=== PATIENT | female | born 1995 | race African-American/Black ===

== ENCOUNTER 2017-07-11 09:51 | Emergency (ER) | payer MEDICAID ==
[~2017-07-11 09:51] MED LIST: NAPR550 PO; ROBA750T PO
[2017-07-11 09:52] VITALS: BP 139/83; PULSE 86; RESP 14; TEMP 98.7; O2SAT 95
--- NOTE | 2017-07-11 10:35 | RADRPT ---
EXAM DATE/TIME: 07/11/2017 10:26 [facility] COMPARISON: No previous studies available for comparison. INDICATIONS : Cough and congestion. Patient states productive cough. MEDICAL HISTORY : None. SURGICAL HISTORY : None. ENCOUNTER: Initial ACUITY: 3 weeks PAIN SCORE: 4/10 LOCATION: Bilateral chest FINDINGS: A single view of the chest demonstrates the lungs to be symmetrically aerated without evidence of mas s, infiltrate or effusion. The cardiomediastinal contours are unremarkable. Osseous structures are intact. CONCLUSION: Normal examination for a patient of this age. Javi Orosco MD on July 11, 2017 at 10:34 Board Certified Radiologist. This report was verified electronically.
--- NOTE | 2017-07-11 10:46 | PD ---
HPI Chief Complaint: Cold / Flu Symptoms Time Seen by Provider: 10:28 Travel History International Travel<30 days: No Contact w/Intl Traveler<30days: No Traveled to known affect area: No History of Present Illness HPI This patient complains of cough and runny nose and congestion and sore throat.The patient was seen and examined in the presence of the nurse. Symptoms severity is mild. No fever PFSH Past Medical History Diminished Hearing: No Immunizations Current: No ?: Unknown : 1 Para: 1 Miscarriage: 0 : 0 Social History Alcohol Use: No Tobacco Use: Yes Substance Use: No Allergies-Medications (Allergen,Severity, Reaction): Coded Allergies: No Known Allergies (Verified , 08/25/16) Reported Meds & Prescriptions Reported Meds & Active Scripts Active Robaxin (Methocarbamol) 750 Mg Tab 750 Mg PO Q8HR Anaprox DS (Naproxen Sodium) 550 Mg Tab 550 Mg PO BID PRN Review of Systems General / Constitutional: No: Fever HENT: No: Headaches Cardiovascular: No: Chest Pain or Discomfort Respiratory: Positive: Cough Physical Exam Narrative RESPIRATORY: Respiratory effort unlabored, no retractions or use of accessory muscles. Breath sounds are clear and symmetric. NECK: Symmetrical appearance, midline trachea. No mass or crepitus. Thyroid without enlargement, tenderness, or mass. GASTROINTESTINAL: Abdomen soft, non-tender, nondistended. Positive bowel sounds. No hepato-splenomegaly, or palpable masses. No guarding. Throat clear Data Data Last Documented VS Vital Signs Date Time Temp Pulse Resp B/P (MAP) Pulse Ox O2 Delivery O2 Flow Rate FiO2 07/11/17 10:27 79 20 99 Room Air 07/11/17 09:52 98.7 139/83 (101) Orders Orders Chest, Single Ap (07/11/17 ) [facility] [place] Medical Decision Making Medical Screen Exam Complete: Yes Emergency Medical Condition: Yes Medical Record Reviewed: Yes Differential Diagnosis Bronchitis, pneumonia, flu syndrome Narrative Course I have reviewed the patient's electronic medical record. I reviewed her chest x-ray which is normal Patient likely has viral illness and supportive care discussed. No indication for antibiotics. Diagnosis Primary Impression: Acute viral bronchitis Additional Instructions: The patient was advised to follow up with their physician and return if they worsen. Med/Other Pt SpecificInfo: Other Disposition: 01 DISCHARGE HOME Condition: Stable Master Cohen MD Jul 11, 2017 10:46
[2017-07-11] MEDS ORDERED: ZITHTAB PO (23:19)
[2017-07-11] MEDS ORDERED: NAPR-239 PO (23:19)
== END 2017-07-11 10:50 | disposition home or self-care (01) ==
LOC: NEPD 09:51
DX: J20.8 Acute bronchitis due to other specified organisms (principal); Z72.0 Tobacco use
CPT/HCPCS: 71010; 99283

== ENCOUNTER 2017-07-11 22:15 | Emergency (ER) | payer MEDICAID ==
[2017-07-11] MEDS ORDERED: KETOROLAC TROMETHAMINE 30 MG/ML (IVP) VIAL IV PUSH ONE (22:30)
[2017-07-11] MEDS ORDERED: SODIUM CHLORIDE 0.9% FLUSH 10 ML FLUSH IVF PRN (22:30)
--- NOTE | 2017-07-11 22:30 | PD ---
HPI Chief Complaint: COUGH Time Seen by Provider: 22:24 Travel History International Travel<30 days: No Contact w/Intl Traveler<30days: No Traveled to known affect area: No History of Present Illness HPI PROD COUGH, GREENISH SPUTUM, FEVER 103, BODY ACHES, ONGOING FOR 2 DAYS SEEN THIS MORNING AND TOLD IT WAS A VIRUS AND DISCHARGED. SHE STILL DOES NOT FEEL WELL AND CALLED AN AMBULANCE TO BE RESEEN. ALL:[facility] PMHX NONE PSHX NONE PFSH Past Medical History Diminished Hearing: No Immunizations Current: No : 1 Para: 1 Miscarriage: 0 : 0 Social History Alcohol Use: No Tobacco Use: Yes Substance Use: No Allergies-Medications (Allergen,Severity, Reaction): Coded Allergies: No Known Allergies (Verified , 08/25/16) Reported Meds & Prescriptions Reported Meds & Active Scripts Active No Active Prescriptions or Reported Medications Review of Systems Except as stated in HPI: all other systems reviewed are Neg General / Constitutional: Positive: Fever Respiratory: Positive: Cough Physical Exam Narrative GENERAL: SKIN: Warm and dry. HEAD: Atraumatic. Normocephalic. EYES: Pupils equal and round. No scleral icterus. No injection or drainage. ENT: No nasal bleeding or discharge. Mucous membranes pink and moist. NECK: Trachea midline. No JVD. CARDIOVASCULAR: Regular rate and rhythm. RESPIRATORY: No accessory muscle use. RONCHI GASTROINTESTINAL: Abdomen soft, non-tender, nondistended. Hepatic and splenic margins not palpable. MUSCULOSKELETAL: Extremities without clubbing, cyanosis, or edema. No obvious deformities. NEUROLOGICAL: Awake and alert. No obvious cranial nerve deficits. Motor grossly within normal limits. Five out of 5 muscle strength in the arms and legs. Normal speech. PSYCHIATRIC: Appropriate mood and affect; insight and judgment normal. Data Data Last Documented VS Vital Signs Date Time Temp Pulse Resp B/P (MAP) Pulse Ox O2 Delivery O2 Flow Rate FiO2 07/11/17 22:43 Room Air 07/11/17 22:42 101.6 101 18 133/80 (97) 98 Orders Orders Chest, Pa & Lat (07/11/17 22:24) Sodium Chloride 0.9% Flush (Ns Flush) (07/11/17 22:30) Influenzae A/B Antigen (07/11/17 22:24) Ketorolac Inj (Toradol Inj) (07/11/17 22:30) [facility] Medical Decision Making Medical Screen Exam Complete: Yes Emergency Medical Condition: Yes Medical Record Reviewed: Yes Differential Diagnosis FLU V PNA V BRONCHITIS Narrative Course PATIENT EVALUATED, NO HYPOXEMIA, NO WHEEZING, CONTROLLED HER FEVER, FLU NEG, AND CXR NEG FOR PNA. WILL D/C HOME Diagnosis Primary Impression: Acute bronchitis Qualified Codes: J20.9 - Acute bronchitis, unspecified Patient Instructions: Acute Bronchitis (ED), General Instructions Scripts Naproxen DR (Naproxen EC) 375 Mg Tabdr 375 MG PO BID, #30 TAB 0 Refills Prov: Bernard Cote MD 07/11/17 Azithromycin (Zithromax Z-Costa) 250 Mg Dspk 250 MG PO DIRECTED for Infection, #1 DSPK 0 Refills 500 MG (2 tabs) day 1, then 1 tab days 2-5. Prov: Bernard Cote MD 07/11/17 Disposition: 01 DISCHARGE HOME Condition: Stable Bernard Cote MD Jul 11, 2017 22:30
[2017-07-11 22:42] VITALS: BP 133/80; PULSE 101; RESP 18; TEMP 101.6; O2SAT 98
--- NOTE | 2017-07-11 22:52 | RADRPT ---
EXAM DATE/TIME: 07/11/2017 22:44 [facility] COMPARISON: No previous studies available for comparison. INDICATIONS : Cough. MEDICAL HISTORY : None. SURGICAL HISTORY : None. ENCOUNTER: Initial ACUITY: 1 day PAIN SCORE: 0/10 LOCATION: Bilateral chest FINDINGS: PA and lateral views of the chest demonstrate the lungs to be symmetrically aerated without evidence of mass, infiltrate or effusion. The cardiomediastinal contours are unremarkable. Osseous structure s are intact. CONCLUSION: No acute disease. Maximiliano Riley MD on July 11, 2017 at 22:51 Board Certified Radiologist. This report was verified electronically.
[2017-07-11] MEDS ORDERED: NAPR-239 PO (23:19)
[2017-07-11] MEDS ORDERED: ZITHTAB PO (23:19)
== END 2017-07-11 23:53 | disposition home or self-care (01) ==
LOC: NEPC 22:15
DX: J20.9 Acute bronchitis, unspecified (principal); Z72.0 Tobacco use
CPT/HCPCS: 71020; 87804; 96374; 99284; J1885

== ENCOUNTER 2017-08-02 21:24 | Emergency (ER) | payer MEDICAID ==
[~2017-08-02] VITALS: Ht 160 cm; Wt 77.0 kg
[~2017-08-02 21:24] MED LIST changes: +NAPR375T4 PO; -NAPR550 PO; -ROBA750T PO; +ZITHTAB PO
[2017-08-02 21:28] VITALS: BP 130/100; PULSE 116; RESP 16; TEMP 99.3; O2SAT 98
[2017-08-02] MEDS ORDERED: BENZONATATE 100 MG CAP PO ONE (22:00)
[2017-08-02] MEDS ORDERED: RESP: ALBUTEROL 2.5 MG/IPRATROPIUM 0.5 MG NEB (SCH) INH ONE (22:00)
--- NOTE | 2017-08-02 22:05 | PD ---
HPI Chief Complaint: Cold / Flu Symptoms Time Seen by Provider: 21:51 Travel History International Travel<30 days: No Contact w/Intl Traveler<30days: No Traveled to known affect area: No History of Present Illness HPI Patient has been asked emergency Department complaining of cough and congestion that began today. Patient reports started with just sinus congestion and developed a cough. Patient reports she is coughing to the point that she is vomiting. Patient denies doing anything for this. Patient states this is similar to recent infection of bronchitis. Patient denies doing anything for this prior to coming emergency department. Denies anything making it better or worse. Denies any known fevers, chest pain, shortness of breath, headaches, vomiting, or . Patient reports symptoms resolved after previous treatment however came back today. PFSH Past Medical History Medical History: Denies Significant Hx Diminished Hearing: No Immunizations Current: Yes Tetanus Vaccination: < 5 Years Influenza Vaccination: Yes ?: Unknown LMP: 10\20\17 : 1 Para: 1 Miscarriage: 0 : 0 Past Surgical History Surgical History: No Previous Surgery Social History Alcohol Use: No Tobacco Use: Yes (1/2 PPD) Substance Use: No Allergies-Medications (Allergen,Severity, Reaction): Coded Allergies: No Known Allergies (Verified Adverse Reaction, Unknown, 08/02/17) Reported Meds & Prescriptions Reported Meds & Active Scripts Active Tessalon Perles (Benzonatate) 100 Mg Cap 200 Mg PO Q8HR PRN Ventolin Hfa 18 GM Inh (Albuterol Sulfate) 90 Mcg/Act Aer 2 Puff INH Q4H PRN Prednisone 20 Mg Tab 20 Mg PO BID 4 Days Review of Systems Except as stated in HPI: all other systems reviewed are Neg Physical Exam Narrative GENERAL: Well-developed, overly nourished, in no acute distress, and non-ill appearing. SKIN: Focused skin assessment warm and dry. HEAD: Atraumatic. Normocephalic. EYES: Pupils equal and round. EOMI. No scleral icterus. No injection or drainage. ENT: No nasal bleeding, but with clear discharge. Mucous membranes pink and moist. No tenderness to facial sinuses to palpation. Posterior pharynx is nonerythematous without exudate. Uvula is midline. NECK: Trachea midline. Supple. No nuclear rigidity. No cervical lymphadenopathy. CARDIOVASCULAR: Regular rate and rhythm. No murmur appreciated. RESPIRATORY: No accessory muscle use. No respiratory distress. Clear to auscultation. Breath sounds equal bilaterally. Hacking cough noted on exam. MUSCULOSKELETAL: No obvious deformities. No clubbing. No cyanosis. No edema. Full range of motion. NEUROLOGICAL: Awake and alert. No obvious cranial nerve deficits. Motor grossly within normal limits. Normal speech. PSYCHIATRIC: Appropriate mood and affect; insight and judgment normal. Data Data Last Documented VS Vital Signs Date Time Temp Pulse Resp B/P (MAP) Pulse Ox O2 Delivery O2 Flow Rate FiO2 08/02/17 22:50 08/02/17 21:28 99.3 116 16 98 Orders Orders Benzonatate (Tessalon) (08/02/17 22:00) Albuterol-Ipratropium Neb (Duoneb Neb) (08/02/17 22:00) Resp Mdi/Instruction (08/02/17 21:55) Chest, Single Ap (08/02/17 ) Prednisone (Deltasone) (08/02/17 22:45) Ed Discharge Order (08/02/17 22:37) MDM Medical Decision Making Medical Screen Exam Complete: Yes Emergency Medical Condition: Yes Interpretation(s) Last Impressions Chest X-Ray 08/02/17 0000 Signed Impressions: Service Date/Time: Wednesday, August 02, 2017 22:01 - CONCLUSION: No acute cardiopulmonary abnormality is identified. Jaime Green MD Differential Diagnosis Bronchitis, pneumonia, upper respiratory infection, sinusitis, allergies, other Narrative Course Patients symptom complex of cough and congestion is consistent with viral URI. The patient is non-ill appearing and is in no respiratory distress and comfortable. The patient moves air well and oxygen saturations are normal. There is no clinical or radiological evidence to suggest pneumonia at this time. Plan of care and management were discussed with the patient who agreed with plan. The patient was instructed to follow up with their physician and instructed to return if worsens, progressively worsening shortness of breath or difficulty breathing, persistent fever, chest pains or discomfort, inability to keep medication or fluids down with or without vomiting, or as needed. Patient in no obvious distress upon re-evaluation. All pertinent radiology result(s) discussed with patient. Patient was asked if they wanted to speak to my attending, which the patient did not wish to do at this time. Any questions/ concerns in reference to patient diagnosis/condition discussed and clarified prior to patient's discharge. Reinforced sheer importance of close follow up with patient's primary physician or primary care clinic. Instructed patient to return to ED immediately, if symptoms return/worsen. Patient showed understanding of above instructions. Further instructions and recommendations were detailed in discharge paperwork. Patient ambulated without difficulty out of ED at discharge. Diagnosis Primary Impression: Upper respiratory infection Qualified Codes: J06.9 - Acute upper respiratory infection, unspecified Referrals: [facility] Patient Instructions: General Instructions, Upper Respiratory Infection (ED) Additional Instructions: Follow-up with your primary care physician this week for evaluation. Take all medication as prescribed. Drink plenty of non-caffeinated and nonalcoholic fluids. Return to the emergency department if symptoms get worse. Med/Other Pt SpecificInfo: Prescription(s) given Scripts Benzonatate (Tessalon Perles) 100 Mg Cap 200 MG PO Q8HR Y for COUGH, #21 CAP 0 Refills Prov: Speedy Morelos MD 08/02/17 Albuterol 18 GM Inh (Ventolin Hfa 18 GM Inh) 90 Mcg/Act Aer 2 PUFF INH Q4H Y for COUGH, #1 INHALER 0 Refills Prov: Speedy Morelos MD 08/02/17 Prednisone (Prednisone) 20 Mg Tab 20 MG PO BID for 4 Days, #8 TAB 0 Refills Prov: Speedy Morelos MD 08/02/17 Disposition: 01 DISCHARGE HOME Condition: Stable Andrzej Montelongo Aug 02, 2017 22:05
--- NOTE | 2017-08-02 22:14 | RADRPT ---
EXAM DATE/TIME: 08/02/2017 22:01 [facility] COMPARISON: CHEST SINGLE AP, July 11, 2017, 10:26. INDICATIONS : Cough. MEDICAL HISTORY : None. SURGICAL HISTORY : None. ENCOUNTER: Initial ACUITY: 1 day PAIN SCORE: 0/10 LOCATION: Bilateral chest FINDINGS: Portable AP view of the chest demonstrates a normal-sized cardiac silhouette. No effusion, consolidat ion, or pneumothorax is visualized. The bones and soft tissues demonstrate no acute abnormality. CONCLUSION: No acute cardiopulmonary abnormality is identified. Jaime Green MD on August 02, 2017 at 22:09 Board Certified Radiologist. This report was verified electronically.
[2017-08-02] MEDS ORDERED: VENTAER INH (22:36)
[2017-08-02] MEDS ORDERED: BENZ100 PO (22:36)
[2017-08-02] MEDS ORDERED: PRED20 PO (22:36)
[2017-08-02] MEDS ORDERED: predniSONE 20 MG TAB PO ONE (22:45)
== END 2017-08-02 22:50 | disposition home or self-care (01) ==
LOC: NEPK 21:24
DX: J06.9 Acute upper respiratory infection, unspecified (principal); F17.200 Nicotine dependence, unspecified, uncomplicated
CPT/HCPCS: 71010; 94664; 99284; J7512